=== PATIENT | female | born 1960 | race Caucasian/White ===

== ENCOUNTER 2016-11-21 11:12 | Emergency (ER) | payer MEDICARE, OTHER ==
[2016-11-21 11:17] VITALS: BP 119/85; PULSE 69; TEMP 98; O2SAT 99
--- NOTE | 2016-11-21 12:06 | C.PDOC ---
History Of Present Illness 56 y/o female pmhx cervical spine fusion presents to ED with complaints of left neck pain since this morning. Pt reports history of occasional neck spasm . Pt works as ict security specialist. Denies new injury or recent trauma. Denies fever, chills, weakness, numbness or any other complaints. Time Seen by Provider: 11/21/16 11:40 Chief Complaint (Nursing): Back Pain History Per: Patient History/Exam Limitations: no limitations Onset/Duration Of Symptoms: Hrs Current Symptoms Are (Timing): Still Present Quality Of Discomfort: "Pain" Severity: Moderate Previous Symptoms: Neck Pain, Chronic Pain Associated Symptoms: None Recent travel outside of the [place]: No Past Medical History Reviewed: Historical Data, Nursing Documentation, Vital Signs Vital Signs: Last Vital Signs Temp 98.0 F 11/21/16 11:15 Pulse 69 11/21/16 11:15 Resp 18 11/21/16 12:46 BP 119/85 11/21/16 11:15 Pulse Ox 99 11/21/16 12:46 - Medical History PMH: Anxiety Family History: States: Unknown Family Hx - Social History Hx Alcohol Use: No Hx Substance Use: No - Immunization History Hx Tetanus Toxoid Vaccination: No Hx Influenza Vaccination: No Hx Pneumococcal Vaccination: No Review Of Systems Constitutional: Negative for: Fever, Chills Musculoskeletal: Positive for: Neck Pain. Negative for: Back Pain Neurological: Negative for: Weakness, Numbness Physical Exam - Physical Exam Appears: Non-toxic, No Acute Distress Skin: Warm, Dry, No Rash Head: Atraumatic, Normacephalic Neck: Decreased ROM (decreased ability to move head to ipsylateral side), No Midline Cervical Tenderness, Paracervical Tenderness (left lateral neck with muscle spasm), Supple Chest: Symmetrical Cardiovascular: Rhythm Regular Respiratory: Normal Breath Sounds, No Rales, No Rhonchi, No Wheezing Back: No Vertebral Tenderness Extremity: Bilateral: Atraumatic Neurological/Psych: Oriented x3, Normal Speech, Normal Cognition, Normal Motor, Normal Sensation ED Course And Treatment O2 Sat by Pulse Oximetry: 99 (room air) Pulse Ox Interpretation: Normal Progress Note: Plan: soft c-collar, valium, toradol, lidoderm patch. On reevaluation, pt feeling better and ready to go home. Discharged patient with instructions to follow up with PMD in 3-4 days. Return to ED if worsening symptoms. Disposition - Disposition Disposition: HOME/ ROUTINE Disposition Time: 12:37 Condition: STABLE Additional Instructions: Follow up with your PMD and painter chassis within 1-2 days. Return to ED if feel worse. 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 - Scribe Statement The provider has reviewed the documentation as recorded by the Teresa Carr All medical record entries made by the Surajibletty were at my direction and personally dictated by me. I have reviewed the chart and agree that the record accurately reflects my personal performance of the history, physical exam, medical decision making, and the department course for this patient. I have also personally directed, reviewed, and agree with the discharge instructions and disposition.
[2016-11-21] MEDS ORDERED: Lidocaine 5% Patch TD STA (12:07)
[2016-11-21] MEDS ORDERED: Lidocaine 5% Patch TD ONE (12:18)
[2016-11-21 12:46] VITALS: RESP 18
== END 2016-11-21 12:46 | disposition home or self-care (01) ==
LOC: C.ER 11:12
DX: M43.6 Torticollis (principal)
CPT/HCPCS: 96372; 99284; J1885

== ENCOUNTER 2017-01-14 06:55 | Day surgery (SDC) | payer OTHER ==
[2017-01-14 07:29] VITALS: BMI 24.6
--- NOTE | 2017-01-14 08:17 | CP.SDSHP ---
Same Day Surgery H & P - History Proposed Procedure: COLONSCOPY Pre-Op Diagnosis: SEE NOTES - Previous Medical/Surgical History Neuro: Other Misc: Other Pain: 4.Moderate Pain - Allergies Allergies: Allergies No Known Allergies Allergy (Verified 11/21/16 11:16) - Physical Exam General Appearance: N Vital Signs: Vital Signs 01/14/17 07:30 Temperature 98 F Pulse Rate 86 Respiratory 18 Rate Blood Pressure 112/85 O2 Sat by Pulse 100 Oximetry Mental Status: Alert & Oriented x3 Neuro: WNL Heart: WNL Lungs: WNL GI: Other - {Optional Preform as Required} Breast: WNL Abdomen: Other Rectal: Other Integument: WNL : WNL Ortho: WNL ENT: WNL - Impression Pt. Evaluated Today:Candidate for Anesthesia & Procedure: Yes - Date & Time Time: 08:19 Short Stay Discharge - Short Stay Discharge Admitting Diagnosis/Reason for Visit: DIARRHEA Disposition: HOME/ ROUTINE
[2017-01-14] MEDS ORDERED: Propofol 10 mg/ml Inj (20 ML) ONE (08:18)
[2017-01-14] MEDS ORDERED: MethylPREDNISolone 40 mg Vial IVP ONE (08:50)
[2017-01-14] MEDS ORDERED: Belladonna-Phenobarbital PO ONE (08:55)
[2017-01-14 09:07] VITALS: O2SAT 100
[2017-01-14 09:26] VITALS: BP 105/78; PULSE 62
[2017-01-14 10:19] VITALS: RESP 16; TEMP 97.8
== END 2017-01-14 10:02 | disposition home or self-care (01) ==
LOC: C.ENDO 06:55
PROVIDERS: ATTEND Specialist
DX: K57.90 Diverticulosis of intestine, part unspecified, without perforation or abscess without bleeding (principal); R19.7 Diarrhea, unspecified; K64.8 Other hemorrhoids; K64.4 Residual hemorrhoidal skin tags
CPT/HCPCS: 45380; 88305; 88313; 88342; J2704; J2920